=== PATIENT | female | born 1995 | race American Indian/Alaskan Native ===

== ENCOUNTER 2016-10-17 04:50 | Emergency (ER) | payer OTHER ==
[2016-10-17] MEDS ORDERED: LORazepam 2 MG/ML Syringe ONE (05:11)
[2016-10-17] MEDS ORDERED: Phenytoin 250 MG/5 ML SDV IV ONE (05:21)
--- NOTE | 2016-10-17 05:54 | EDM.PDOC ---
ED HPI GENERAL MEDICAL PROBLEM - General Source of Information: Reports: Patient, Family History Limitations: Reports: No Limitations <Sunitha Cronin - Last Filed: 10/17/16 06:29> <Berto Andres - Last Filed: 10/18/16 12:57> - General Chief Complaint: Neurological Problem Stated Complaint: SEIZURES, OUT OF MEDS Time Seen by Provider: 10/17/16 05:10 - History of Present Illness INITIAL COMMENTS - FREE TEXT/NARRATIVE: Patient reported to have had 2 seizures tonight. Has hx seizure disorder and on Trileptal but has been out of meds . Has been traveling visiting family. Unknown how long out of medications. TC to mother by family member notes last seizure 1-2 years ago. Patient reports experiencing aura, - seeing orbs during nursing assessment, experienced witnessed generalized seizure lasting 56 seconds. Dad denies any drug or alcohol abuse. (Sunitha Cronin) - Related Data Allergies Allergy/AdvReac Type Severity Reaction Status Date / Time No Known Allergies Allergy Verified 10/17/16 04:55 Home Meds: Home Meds OXcarbazepine [Trileptal] 1 tab PO BID 10/17/16 [History] lamoTRIgine [Lamictal] 2.5 mg PO BID 10/17/16 [History] Past Medical History Neurological History: Reports: Seizure <Sunitha Cronin - Last Filed: 10/17/16 06:29> Social & Family History - Family History Family Medical History: Unobtainable - Tobacco Use Smoking Status *Q: Unknown Ever Smoked Second Hand Smoke Exposure: No - Caffeine Use Caffeine Use: Reports: Soda - Recreational Drug Use Recreational Drug Use: No <Sunitha Cronin - Last Filed: 10/17/16 06:29> ED ROS GENERAL - Review of Systems Review Of Systems: ROS reveals no pertinent complaints other than HPI. <Sunitha Cronin - Last Filed: 10/17/16 06:29> - Physical Exam Exam: See Below Exam Limited By: No Limitations General Appearance: Lethargic (postictal) Eye Exam: Bilateral Eye: PERRL Ears: Normal External Exam Nose: Normal Inspection Throat/Mouth: Normal Inspection Head Exam: Atraumatic, Normocephalic Neck: Full Range of Motion Respiratory/Chest: No Respiratory Distress Cardiovascular: Regular Rate, Rhythm GI/Abdominal: Normal Bowel Sounds, Soft Neuro Exam (Abbreviated): Other (alert oriented on presentation, able to provide hx.) Back Exam: Normal Inspection Extremities: Normal Inspection Skin Exam: Warm, Dry, Intact, Normal Color <Sunitha Cronin - Last Filed: 10/17/16 06:29> Course <Sunitha Cronin - Last Filed: 10/17/16 06:29> <Berto Andres - Last Filed: 10/18/16 12:57> - Vital Signs Last Recorded V/S: Last Vital Signs Temp 96.4 F 10/17/16 04:58 Pulse 95 10/17/16 06:47 Resp 16 10/17/16 06:47 BP 119/51 L 10/17/16 06:47 Pulse Ox 100 10/17/16 06:47 (Sunitha Cronin) (Berto Andres) - Orders/Labs/Meds Orders: (Sunitha Cronin) Labs: Laboratory Tests 10/17/16 10/17/16 10/17/16 Range/Units 05:17 05:45 05:45 WBC 16.4 H (5.0-10.0) 10^3/uL RBC 4.50 (4.2-5.4) 10^6/uL Hgb 12.4 (12.0-16.0) g/dL Hct 38.3 (37.0-47.0) % MCV 85.1 (80-100) fL MCH 27.6 (27.0-34.0) pg MCHC 32.4 L (33.0-35.0) g/dL Plt Count 343 (150-450) 10^3/uL Neut % (Auto) 81.2 H (42.2-75.2) % Lymph % (Auto) 11.2 L (20.5-50.1) % Thomas % (Auto) 7.4 (2-8) % Eos % (Auto) 0.1 L (1.0-3.0) % Baso % (Auto) 0.1 (0.0-1.0) % Add Manual Diff Yes Neutrophils % (Manual) 78 % Band Neutrophils % 2 % Lymphocytes % (Manual) 15 % Monocytes % (Manual) 5 % Sodium 137 (135-145) mmol/L Potassium 3.7 (3.6-5.0) mmol/L Chloride 107 (101-111) mmol/L Carbon Dioxide 17.0 L (21.0-31.0) mmol/L Anion Gap 16.7 BUN 8 (7-18) mg/dL Creatinine 1.0 (0.6-1.3) mg/dL Est Cr Clr Drug Dosing 87.27 mL/min Estimated GFR (MDRD) > 60 BUN/Creatinine Ratio 8.00 Glucose 130 H (74-105) mg/dL POC Glucose 140 H (70-105) mg/dl Calcium 9.1 (8.4-10.2) mg/dl Total Bilirubin 0.4 (0.2-1.0) mg/dL AST 33 (10-42) IU/L ALT 24 (10-60) IU/L Alkaline Phosphatase 114 (42-121) IU/L Total Protein 7.7 (6.7-8.2) g/dl Albumin 4.2 (3.2-5.5) g/dl Globulin 3.5 Albumin/Globulin Ratio 1.20 HCG, Qual Negative Urine Color (YELLOW) Urine Appearance (CLEAR) Urine pH (5.0-9.0) Ur Specific Byron (1.005-1.030) Urine Protein (NEGATIVE) Urine Glucose (UA) (NEGATIVE) Urine Ketones (NEGATIVE) Urine Occult Blood (NEGATIVE) Urine Nitrite (NEGATIVE) Urine Bilirubin (NEGATIVE) Urine Urobilinogen (0.2-1.0) mg/dL Ur Leukocyte Esterase (NEGATIVE) Urine RBC /HPF Urine WBC (0-5/HPF) /HPF Ur Epithelial Cells /HPF Amorphous Sediment (0/HPF) /HPF Urine Bacteria (0-FEW/HPF) /HPF Urine Opiates Screen (NEGATIVE) Ur Oxycodone Screen (NEGATIVE) Urine Methadone Screen (NEGATIVE) Ur Barbiturates Screen (NEGATIVE) U Tricyclic Antidepress (NEGATIVE) Ur Phencyclidine Scrn (NEGATIVE) Ur Amphetamine Screen (NEGATIVE) U Methamphetamines Scrn (NEGATIVE) Urine MDMA Screen (NEGATIVE) U Benzodiazepines Scrn (NEGATIVE) Urine Cocaine Screen (NEGATIVE) U Marijuana (THC) Screen (NEGATIVE) Ethyl Alcohol < 5 mg/dL 10/17/16 10/17/16 Range/Units 07:52 07:52 WBC (5.0-10.0) 10^3/uL RBC (4.2-5.4) 10^6/uL Hgb (12.0-16.0) g/dL Hct (37.0-47.0) % MCV (80-100) fL MCH (27.0-34.0) pg MCHC (33.0-35.0) g/dL Plt Count (150-450) 10^3/uL Neut % (Auto) (42.2-75.2) % Lymph % (Auto) (20.5-50.1) % Thomas % (Auto) (2-8) % Eos % (Auto) (1.0-3.0) % Baso % (Auto) (0.0-1.0) % Add Manual Diff Neutrophils % (Manual) % Band Neutrophils % % Lymphocytes % (Manual) % Monocytes % (Manual) % Sodium (135-145) mmol/L Potassium (3.6-5.0) mmol/L Chloride (101-111) mmol/L Carbon Dioxide (21.0-31.0) mmol/L Anion Gap BUN (7-18) mg/dL Creatinine (0.6-1.3) mg/dL Est Cr Clr Drug Dosing mL/min Estimated GFR (MDRD) BUN/Creatinine Ratio Glucose (74-105) mg/dL POC Glucose (70-105) mg/dl Calcium (8.4-10.2) mg/dl Total Bilirubin (0.2-1.0) mg/dL AST (10-42) IU/L ALT (10-60) IU/L Alkaline Phosphatase (42-121) IU/L Total Protein (6.7-8.2) g/dl Albumin (3.2-5.5) g/dl Globulin Albumin/Globulin Ratio HCG, Qual Urine Color Yellow (YELLOW) Urine Appearance Turbid (CLEAR) Urine pH 5.0 (5.0-9.0) Ur Specific Byron 1.025 (1.005-1.030) Urine Protein Trace H (NEGATIVE) Urine Glucose (UA) Negative (NEGATIVE) Urine Ketones Negative (NEGATIVE) Urine Occult Blood Trace-lysed H (NEGATIVE) Urine Nitrite Negative (NEGATIVE) Urine Bilirubin Negative (NEGATIVE) Urine Urobilinogen 0.2 (0.2-1.0) mg/dL Ur Leukocyte Esterase Small H (NEGATIVE) Urine RBC 0-5 /HPF Urine WBC 0-5 (0-5/HPF) /HPF Ur Epithelial Cells Many H /HPF Amorphous Sediment Many H (0/HPF) /HPF Urine Bacteria Moderate H (0-FEW/HPF) /HPF Urine Opiates Screen Negative (NEGATIVE) Ur Oxycodone Screen Negative (NEGATIVE) Urine Methadone Screen Negative (NEGATIVE) Ur Barbiturates Screen Positive H (NEGATIVE) U Tricyclic Antidepress Negative (NEGATIVE) Ur Phencyclidine Scrn Negative (NEGATIVE) Ur Amphetamine Screen Negative (NEGATIVE) U Methamphetamines Scrn Negative (NEGATIVE) Urine MDMA Screen Negative (NEGATIVE) U Benzodiazepines Scrn Positive H (NEGATIVE) Urine Cocaine Screen Negative (NEGATIVE) U Marijuana (THC) Screen Negative (NEGATIVE) Ethyl Alcohol mg/dL (Sunitha Cronin) (Berto Andres) Meds: Medications Discontinued Medications Generic Name Dose Route Start Last Admin Trade Name Freq PRN Reason Stop Dose Admin Lorazepam Confirm 10/17/16 05:11 10/17/16 05:11 Ativan Administered 10/17/16 05:12 2 mg Dose Administration 2 mg .ROUTE .STK-MED ONE Ondansetron HCl 4 mg 10/17/16 06:13 10/17/16 06:43 Zofran IV 10/17/16 06:14 4 mg ONETIME ONE Administration Phenytoin Sodium 1,000 mg 10/17/16 05:21 10/17/16 05:43 Phenytoin IV 10/17/16 05:22 1,000 mg ONETIME ONE Administration (Sunitha Cronin) (Berto Andres) - Re-Assessments/Exams Free Text/Narrative Re-Assessment/Exam: 10/17/16 05:59 Generalized tonic clonic seizure lasting 56 seconds. Postictal following. Dad able to have mother take pictures of medication bottles listing medications and dosages. Unable to determie fill dates by photo;s. Dad left to check at home for Rx while waiting for lab studies. 10/17/16 06:16 light arousal, able to follow simple commands. Reports nausea, vomit small amount. (Sunitha Cronin) Departure - Departure Condition: Undetermined <Sunitha Cronin - Last Filed: 10/17/16 06:29> - Departure Time of Disposition: 08:18 Condition: Good <DmitryBerto Cerrato - Last Filed: 10/18/16 12:57> - Departure Disposition: Home, Self-Care 01 Clinical Impression: Seizure disorder, Noncompliance w/medication treatment due to intermit use of medication, Bacterial vaginosis UTI (urinary tract infection) Qualifiers: Urinary tract infection type: site unspecified Hematuria presence: without hematuria Qualified Code(s): N39.0 - Urinary tract infection, site not specified - Discharge Information Instructions: Seizure, Adult, [id number], Urinary Tract Infection, Adult, Bacterial Vaginosis Forms: ED Department Discharge Additional Instructions: resume medications Trileptal 600mg twice daily Rx #14 Lamotragine 25mg twice daily RX #14 Establish primary care in area
[2016-10-17] MEDS ORDERED: Ondansetron 4 MG/2 ML SDV IV ONE (06:13)
[2016-10-17 06:22] LABS: CHLORIDE,CL 107 mmol/L (101-111); SODIUM,NA 137 mmol/L (135-145)
[2016-10-17 06:51] VITALS: BP 119/51
== END 2016-10-17 08:15 | disposition home or self-care (01) ==
LOC: DL.ED 04:50
DX: G40.909 Epilepsy, unspecified, not intractable, without status epilepticus (principal); N39.0 Urinary tract infection, site not specified; N76.0 Acute vaginitis; Z91.14 Patient's other noncompliance with medication regimen
CPT/HCPCS: 36415; 80053; 80305; 81001; 82962; 84703; 85025; 96365; 96366; 96375; 99284; G0480; J1165; J2060; J2405